=== PATIENT | male | born 1990 | race Caucasian/White ===

== ENCOUNTER 2017-02-15 12:58 | Emergency (ER) | payer MEDICAID ==
[2017-02-15] MEDS ORDERED: cefTRIAXone 1 GM VIAL IM STA (14:15)
[2017-02-15] MEDS ORDERED: SULFAMETH/TRIMETH DS 800/160 MG TABLET PO STA (14:16)
[2017-02-15] MEDS ORDERED: SULFAMETH/TRIMETH DS 800/160 MG TABLET PO ONE (14:18)
[2017-02-15] MEDS ORDERED: cefTRIAXone 1 GM VIAL ONE (14:18)
--- NOTE | 2017-02-15 14:18 | ED Physician Documentation ---
History of Present Illness - Stated complaint Stated Complaint: L HAND LAC - Chief complaint Chief Complaint: Wound - History obtained from History obtained from: Patient - History of Present Illness Timing: Other (1 month ago) Pain level max: 3 Pain level now: 3 Improved by: nothing Worsened by: nothing - Additonal information Additional information: Patient is a 26-year-old male who presents to the emergency department with a left hand injury. States he lacerated the left hand approximately 1 month ago, did not seek medical attention at that time. Today noted redness and swelling to the hand. Patient is right-handed. No fevers. No drainage. No foreign bodies. Review of Systems Constitutional: denies: Fever, Chills Respiratory: denies: Cough, Wheezing GI: denies: Nausea, Vomiting, Diarrhea Skin: denies: Rash Musculoskeletal: denies: Neck pain, Back pain Neurologic: denies: Focal weakness, Numbness, Headache PD PAST MEDICAL HISTORY - Past Medical History Past Medical History: Yes - Past Surgical History Past Surgical History: No - Present Medications Home Medications: Ambulatory Orders Medication Instructions Recorded Confirmed Sulfamethox/Trimeth 800/160 1 each PO BID #20 tablet 02/15/17 [Bactrim Ds 800/160] - Allergies Allergies/Adverse Reactions: Allergies Allergy/AdvReac Type Severity Reaction Status Date / Time shellfish derived Allergy Intermediate Hives Verified 02/15/17 13:27 iodine Allergy Rash Verified 02/15/17 13:27 - Social History Does the pt smoke?: Yes Smoking Status: Current every day smoker Does the pt drink ETOH?: No Does the pt have substance abuse?: Yes - Immunizations Immunizations are current?: Yes Immunizations: TDAP current <10years (2013) PD ED PE NORMAL - Vitals Vital signs reviewed: Yes - General General: Alert and oriented X 3, No acute distress - Derm Derm: Warm and dry - Extremities Extremities: Other (L hand - mild swelling and erythema. no tenderness over the palmar aspect. NVI. No drainable abscess. ) - Neuro Neuro: Alert and oriented X 3 - Psych Psych: Normal mood, Normal affect Results - Vitals Vitals: Vital Signs - 24 hr 02/15/17 13:25 Temperature 36.9 C Heart Rate 96 Respiratory 12 Rate Blood Pressure 130/76 O2 Saturation 100 Oxygen O2 Source Room air PD MEDICAL DECISION MAKING - ED course Complexity details: considered differential, d/w patient ED course: Patient is a 26-year-old male who presents to the emergency department with left hand cellulitis after accidentally lacerating his hand with a knife one month ago. There is no drainable abscess at this time. No evidence of deep space infection in the hand. No lymphangitic spread. Given Rocephin here and will place on Bactrim for home. Will bring him back closely for a wound check. Tetanus is up-to-date. Patient is right-handed. Patient counseled regarding signs and symptoms for which I believe and urgent re-evaluation would be necessary. Patient with good understanding of and agreement to plan and is comfortable going home at this time This document was made in part using voice recognition software. While efforts are made to proofread this document, sound alike and grammatical errors may occur. Departure - Departure Disposition: 01 Home, Self Care Clinical Impression: Cellulitis Qualifiers: Site of cellulitis: extremity Site of cellulitis of extremity: upper extremity Laterality: left Qualified Code(s): L03.114 - Cellulitis of left upper limb Condition: Good Instructions: ED Staph Infec Abx Tx Only Follow-Up: your,doctor in 2 days [Other] Prescriptions: Sulfamethox/Trimeth 800/160 [Bactrim Ds 800/160] 1 each PO BID #20 tablet Comments: Return if you worsen. This should improve over the next 24-48 hours. You should return on Saturday for a wound check if you cannot see your doctor. Return sooner if the wound is worsening
[2017-02-15 14:57] VITALS: BP 131/65
== END 2017-02-15 14:57 | disposition home or self-care (01) ==
LOC: ED 12:58
DX: L03.114 Cellulitis of left upper limb (principal); F17.200 Nicotine dependence, unspecified, uncomplicated
CPT/HCPCS: 96372; 99283; A9270